=== PATIENT | male | born 1945 | race Caucasian/White ===

== ENCOUNTER → 2019-03-21 08:45 | Outpatient (CLI) | payer MEDICARE, OTHER, SELFPAY ==
--- NOTE | 2019-03-21 | DI.US.S_ITS ---
PROCEDURE: US CAROTID DOPPLER BI INDICATIONS: SYNCOPE AND COLLAPSE TECHNIQUE: Color and pulse Doppler interrogation was performed of both carotid systems, with image documentation and velocity measurements. COMPARISON: [facility], , STROKE PROTOCOL, 01/27/2015, 19:00. FINDINGS: Stenosis calculations are based on SRU (Society of Radiologists in Ultrasound) criteria. Right side: Brachial blood pressure: 111/71 mm Hg. Common carotid artery peak systolic velocity: 109 cm/sec. Internal carotid artery peak systolic velocity: 142 cm/sec. Internal carotid artery end diastolic velocity: 57 cm/sec. External carotid artery peak systolic velocity: 133 cm/sec. ICA/CCA peak systolic ratio: 1.31 Elliott scale imaging description: Minimal atherosclerotic change can be seen. Percent internal carotid artery stenosis: 50-69% by velocity criteria Vertebral artery: Flow direction is antegrade. Left side: Brachial blood pressure: 119/71 mm Hg. Common carotid artery peak systolic velocity: 108 cm/sec. Internal carotid artery peak systolic velocity: 120 cm/sec. Internal carotid artery end diastolic velocity: 43 cm/sec. External carotid artery peak systolic velocity: 114 cm/sec. ICA/CCA peak systolic ratio: 1.12 Elliott scale imaging description: Mild atherosclerotic changes are seen. Percent internal carotid artery stenosis: Less than 50% by velocity criteria Vertebral artery: Flow direction is antegrade. IMPRESSION: By velocity criteria, there is a moderate stenosis (between 50 and 69% stenosis) within the right proximal internal carotid artery. The true degree of stenosis is felt most likely to be at the lower end of this range. Dictated by: Patricio Blair M.D. on 03/21/2019 at 9:34 Approved by: Patricio Blair M.D. on 03/21/2019 at 9:36
== END ==
PROVIDERS: Family Provider Family Medicine; PCP Family Medicine; Visit Provider Family Medicine
DX: I65.23 Occlusion and stenosis of bilateral carotid arteries (principal); R55 Syncope and collapse
CPT/HCPCS: 93880

== ENCOUNTER 2019-11-25 11:50 | Emergency (ER) | payer MEDICARE, OTHER, SELFPAY ==
[2019-11-25 12:06] VITALS: BP 171/74; PULSE 54; RESP 15; TEMP 36.5; O2SAT 99; BMI 22.7
[2019-11-25 12:29] LABS: Bacteria Urine None Seen
[2019-11-25 12:44] LABS: Culture Indicated Urine Specimen Cultured; RBC Urine 0-1/HPF (0-5/HPF); WBC Urine 5-10/HPF (0-5/HPF)
[2019-11-25 12:56] LABS: Add Manual Diff / Slide Review NO; Basophils Absolute Auto 100 /uL (0-100); Eosinophils Absolute Auto 300 /uL (0-450); Eosinophils Percent Auto 5.5 % (2-4); Hematocrit 41.3 % (41-53); Hemoglobin 13.6 g/dL (13.5-17.5); Lymphocytes Absolute Auto 1400 /uL (1100-4500); Lymphocytes Percent Auto 24.4 % (25-40); Mean Corpuscular HGB Conc 32.9 % (30-36); Mean Corpuscular Hemoglobin 29.8 PG (26-34); Mean Corpuscular Volume 90.7 fL (80-100); Monocytes Absolute Auto 500 /uL (0-900); Monocytes Percent Auto 9.3 % (3-14); Neutrophils Absolute Auto 3400 /uL (1500-7000); Neutrophils Percent Auto 59.8 % (50-75); Platelet Count 244 X10^3/uL (150-400); Red Blood Cell Count 4.55 X10^6/uL (4.5-5.9); Red Cell Distribution Width 13.7 % (11.6-14.8); White Blood Cell Count 5.6 X10^3/uL (4.5-11.0)
[2019-11-25 12:59] LABS: Alanine Aminotransferase 28 IU/L (<50); Albumin 4.1 g/dL (3.5-5.0); Albumin Globulin Ratio 1.8 (1.0-2.8); Alkaline Phosphatase 75 U/L (38-126); Aspartate Aminotransferase 26 IU/L (17-59); BUN Creatinine Ratio 25.9 (6-22); Bilirubin Total 0.4 mg/dL (0.2-1.3); Blood Urea Nitrogen 22 mg/dL (9-20); Calcium 9.6 mg/dL (8.4-10.2); Carbon Dioxide 27 mmol/L (22-32); Chloride 106 mmol/L (98-107); Estimated Glomerular Filt Rate > 60.0 mL/min (>60); Globulin 2.3 g/dL (1.7-4.1); Glucose 104 mg/dL (80-110); HEMOLYSIS 19 (0-50); Potassium 4.2 mmol/L (3.4-5.1); Sodium 138 mmol/L (137-145); Total Protein 6.4 g/dL (6.3-8.2)
[2019-11-25 13:00] VITALS: BP 145/74
--- NOTE | 2019-11-25 13:07 | ED_ITS ---
HPI - Neuro Symptoms/Deficit General Chief Complaint: Neuro Symptoms/Deficit Stated Complaint: Neurological Issues Time Seen by Provider: 11/25/19 12:00 Source: patient Mode of arrival: Ambulatory Limitations: no limitations History of Present Illness HPI Narrative: Patient is a 74-year-old male who presents with vague symptoms. He is actually attending a medication seminar this weekend and he is in charge of breaking up 2-1/2 hour blocks into 35 minutes block. He says he had difficult time with the math while meditating this morning. He said this is uncommon for him he is typically very good at this type of math. He had no focal deficits no numbness tingling weakness difficulty speaking or facial droop. He is unsure exactly how long this brain fog lasted possibly an hour. He also has a history of migraines he gets an aura but does not always get headache. He denies an aura this time. He still does not feel quite right. He currently denies any headache visual changes facial numbness chest pain heart palpitations abdominal pain nausea or vomiting, or dizziness. On Anticoagulants: No Related Data Home Medications Medication Instructions Recorded Confirmed No Known Home Medications 07/30/19 Allergies Allergy/AdvReac Type Severity Reaction Status Date / Time venom-honey bee Allergy Unknown Verified 08/19/18 12:55 [BEE VENOM (HONEY BEE)] Review of Systems Review of Systems Narrative: GENERAL: Denies chills, fatigue, malaise, fever, sweats, travel HEENT: Denies sinus pain, ear pain, sore throat, difficulty swallowing, neck pain RESPIRATORY: Denies dyspnea, cough, wheezing, hemoptysis, sputum. CARDIOVASCULAR: Denies chest pain, palpitations, orthopnea, edema GASTROINTESTINAL: Denies nausea, vomiting, abdominal pain, diarrhea, constipation, melena. : Denies dysuria, frequency, incontinence, hematuria, urinary retention, flank pain. MUSCULOSKELETAL: Denies weakness, joint pain, or bony pain SKIN: No rash, no erythema, no pruritus NEUROLOGIC: See HPI PSYCHIATRIC: No concerning psychosocial issues. 12 point review of systems is negative except for those stated above and HPI Patient History Medical History TIA (transient ischemic attack) (Acute) Surgical History Status post hip replacement (Acute) Family History Father Hypertension Heart disease Anxiety Dementia Mother Heart disease Dementia Social History Smoking Status: Former smoker Smoking Status: Former smoker alcohol intake frequency: 0-2 drinks per day Substance Use Type: does not use Exam Initial Vital Signs Initial Vital Signs: Vital Signs Temperature 97.7 F 11/25/19 12:06 Pulse Rate 54 L 11/25/19 12:06 Respiratory Rate 15 11/25/19 12:06 Blood Pressure 171/74 H 11/25/19 12:06 Pulse Oximetry 99 11/25/19 12:06 GENERAL: Alert well-appearing gentleman HEENT: Head atraumatic,EOMI, pupils reactive, face symmetric, moist mucous membranes CARDIOVASCULAR: Regular rate and rhythm without murmurs, rubs or gallops. RESPIRATORY: Breath sounds equal bilaterally, no wheezes rales or rhonchi. ABDOMEN: Soft, nontender. Normoactive bowel sounds all 4 quadrants. No guarding or rebound. EXTREMITIES: Normal range of motion, no clubbing or edema. Neurovascularly intact NEUROLOGICAL: Alert and oriented x4.Normal gait and speech. Cranial nerves II through XII grossly intact. Good dzrgsy-jl-yfep, good tpcw-iy-xvae, strength equal bilaterally, no dysarthria or aphasia, sensation in tact to soft touch bilaterally, no visual changes, no facial droop able to count by serial sevens SKIN: Warm, dry, no laceration, no petechiae, no rashes or lesions. Scores NIH Stroke Scale Level of Conciousness: Alert, keenly responsive Ask month/age: Answers both questions correctly. Open/close eyes, close hand: Performs both tasks correctly Best gaze horizontal: Normal Visual carlos: No visual loss Facial palsy: Normal symetrical movement Left arm drift: No drift for full 10 sec Right arm drift: No drift for full 10 sec Left leg drift: No drift for full 10 sec Right leg drift: No drift for full 10 sec Limb ataxia: Absent Sensory on face/arms/legs: Normal, no sensory loss Best language: No aphasia, normal Dysarthria: Normal Extinction or inattention: No abnormality Total NIH Stroke scale score: 0 Course Orders Ordered: ED Orders 11/25/19 12:20 Urine Culture Stat Urine Microscopic Stat 11/25/19 12:41 Complete Blood Count AUTO DIFF Stat Comprehensive Metabolic Panel Stat 11/25/19 13:08 CT head/brain wo con Stat Vital Signs Vital signs: Vital Signs - 8 hr 11/25/19 12:06 11/25/19 13:00 11/25/19 13:45 Temperature 97.7 F Pulse Rate 54 L 52 L Respiratory Rate 15 13 Blood Pressure 171/74 H 145/74 H Pulse Oximetry 99 99 MDM - Neuro Symptoms/Deficit Lab Data Attestation: I reviewed the patient's lab results. Result diagrams: 11/25/19 12:41 11/25/19 12:41 Labs: Lab Results 11/25/19 11/25/19 11/25/19 Range/Units 12:20 12:41 12:41 WBC 5.6 (4.5-11.0) X10^3/uL RBC 4.55 (4.5-5.9) X10^6/uL Hgb 13.6 (13.5-17.5) g/dL Hct 41.3 (41-53) % MCV 90.7 (80-100) fL MCH 29.8 (26-34) PG MCHC 32.9 (30-36) % RDW 13.7 (11.6-14.8) % Plt Count 244 (150-400) X10^3/uL Neut % (Auto) 59.8 (50-75) % Lymph % (Auto) 24.4 L (25-40) % [place] % (Auto) 9.3 (3-14) % Eos % (Auto) 5.5 H (2-4) % Baso % (Auto) 1.0 (0-2) % Neut # (Auto) 3400 (3828-1851) /uL Lymph # (Auto) 1400 (5465-1334) /uL [place] # (Auto) 500 (0-900) /uL Eos # (Auto) 300 (0-450) /uL Baso # (Auto) 100 (0-100) /uL Sodium 138 (137-145) mmol/L Potassium 4.2 (3.4-5.1) mmol/L Chloride 106 (98-107) mmol/L Carbon Dioxide 27 (22-32) mmol/L BUN 22 H (9-20) mg/dL Creatinine 0.85 (0.66-1.25) mg/dL Estimated GFR > 60.0 (>60) mL/min BUN/Creatinine Ratio 25.9 H (6-22) Glucose 104 (80-110) mg/dL Calcium 9.6 (8.4-10.2) mg/dL Total Bilirubin 0.4 (0.2-1.3) mg/dL AST 26 (17-59) IU/L ALT 28 (<50) IU/L Alkaline Phosphatase 75 (38-126) U/L Total Protein 6.4 (6.3-8.2) g/dL Albumin 4.1 (3.5-5.0) g/dL Globulin 2.3 (1.7-4.1) g/dL Albumin/Globulin Ratio 1.8 (1.0-2.8) Urine RBC 0-1/hpf (0-5/HPF) Urine WBC 5-10/hpf H (0-5/HPF) Urine Bacteria None seen (None) Ur Culture Indicated? Specimen cultured Urine Dip Bedside Urine Glucose Negative Bedside Urine Bilirubin - Negative Bedside Urine Ketone - Negative Urine Specific Britton 1.015 Bedside Urine Occult Blood - Negative Bedside Urine pH 6.0 Bedside Urine Protein - Negative Bedside Urine Urobilinogen - Negative Bedside Urine Nitrite - Negative Bedside Urine Leukocytes ++ [address] scan - head: Radiologist's Impression: PROCEDURE: CT HEAD/BRAIN WO CON INDICATIONS: difficulty thinking TECHNIQUE: Noncontrast 4.5 mm thick angled axial sections acquired from the foramen magnum to the vertex, with coronal and sagittal reformats. For radiation dose reduction, the following was used: automated exposure control, adjustment of mA and/or kV according to patient size. COMPARISON: Outside Facility, RG, CT HEAD W/O CONTRAST, 06/12/2018, 17:31. FINDINGS: Image quality: Diagnostic CSF spaces: Basal cisterns are patent. No extra-axial fluid collections. Ventricles are normal in size and shape. Brain: No midline shift. No intracranial masses or hemorrhage. Elliott-white matter interface is normal. Confluent areas of low-attenuation are identified within the periventricular and deep white matter of the supratentorial brain that is more prominent involving the parietal lobes and is similar to the previous exam. Skull and face: Calvarium and visualized facial bones are intact, without suspicious lesions. Sinuses: Visualized sinuses and mastoids are clear. IMPRESSION: Stable head CT. No acute intracranial hemorrhage. Extensive chronic small vessel ischemic changes are present. Dictated by: Hector Greco M.D. on 11/25/2019 at 12:31 Approved by: Hector Greco M.D. on 11/25/2019 at 12:32 MDM Narrative Medical decision making narrative: Patient has weird symptom of not being able to do math but is able to count by serial 7 now. He has no focal deficits. He does have a history of odd migraines at present with or is but no actual headache or pain. He says this is sort of similar. I think that this is an episode of his. At this time I will discharge him with strict return precautions. He has been on the monitor and has been in sinus rhythm. 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 At this time I have low suspicion for stroke or mini- stroke *Continue to take medications as directed *Follow up with your primary care provider in 2-3 days *Return to ER if you should have increased confusion, difficulty speaking numbness tingling or weakness or any new, worsening or concerning symptoms Prescriptions: No Action No Known Home Medications RF: 0 Referrals: Roscoe Alonso MD [Primary Care Provider] -
[2019-11-25 13:45] VITALS: PULSE 52; RESP 13; O2SAT 99
== END 2019-11-25 14:07 | disposition home or self-care (01) ==
PROVIDERS: Emergency Provider Emergency Medicine; Family Provider Family Medicine; PCP Family Medicine
DX: G43.109 Migraine with aura, not intractable, without status migrainosus (principal)
CPT/HCPCS: 36415; 70450; 80053; 81003; 81015; 85025; 87086; 99284

== ENCOUNTER → 2020-02-15 14:04 | Outpatient (CLI) | payer MEDICARE, OTHER, SELFPAY ==
--- NOTE | 2020-02-15 | DI.MRI.S_ITS ---
PROCEDURE: MR HEAD/BRAIN WO/W CON INDICATIONS: Cerebral amyloid angiopathy TECHNIQUE: Noncontrast axial T1 spin echo, axial T2 fast spin echo, sagittal and axial FLAIR, coronal T2 fast spin echo, axial gradient echo, axial diffusion and ADC through the brain. After the administration of contrast, axial and coronal 3D VIBE or T1 spin echo with fat saturation through the brain. COMPARISON: [facility], CT, CT HEAD/BRAIN WO CON, 11/25/2019, 13:05. Outside Facility, RG, MRI HEAD W/O CONTRAST, 06/12/2018, 22:20. Outside Facility, RG, CT HEAD / NECK ANGIO, 06/12/2018, 17:31. Outside Facility, RG, CT HEAD W/O CONTRAST, 06/12/2018, 17:31. [facility], MR, STROKE PROTOCOL, 01/27/2015, 19:00. FINDINGS: Image quality: Excellent. CSF Spaces: Basal cisterns are patent. No extra-axial fluid collections. Ventricles are normal in size and shape. Brain: No midline shift. No acute intracranial bleeds. There is mild, diffuse cerebral volume loss. No abnormal intracranial mass or mass effect. Punctate and confluent areas of increased T2 signal noted in the periventricular and subcortical white matter tracks. No abnormal intracranial enhancement. The brainstem appears normal. Diffusion-weighted images demonstrate no acute ischemic insults. No areas of encephalomalacia. Curvilinear susceptibility artifact involving sulci of the left frontal lobe, left parietal lobe, left occipital lobe, right parietal lobe and right occipital lobe stable compared to prior MRI obtained June 12, 2018. Punctate foci of susceptibility artifact in the left parietal lobe, left occipital lobe, right occipital lobe, left temporal lobe and cerebellar hemispheres noted. Normal intravascular flow voids are present. Skull and face: Calvarial marrow is normal in signal. Orbits appear normal. Sinuses: Sinuses and mastoids appear clear. IMPRESSION: 1. Stable examination compared to June 12, 2018. 2. 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 Finding is compatible with remote subarachnoid hemorrhage which could be related to trauma or reported amyloid angiopathy. 3. Punctate foci of susceptibility artifact involving the parietal lobes bilaterally, occipital lobes bilaterally, left temporal lobe and cerebellar hemispheres compatible with chronic micro bleeds stable compared to prior MRI. Finding could be related to prior traumatic axial injury, hypertensive microbleeds or amyloid angiopathy microbleeds. 4. No acute intracranial hemorrhage. 5. Punctate and confluent areas of hyperintense T2 signal involving the periventricular and subcortical white matter tracks stable compared to prior examination. 6. No abnormal intra intracranial mass or mass effect. 7. No suspicious postcontrast enhancement. Dictated by: Joselin Goldstein MD, PhD on 02/15/2020 at 16:16 Approved by: Joselin Goldstein MD, PhD on 02/15/2020 at 16:29
== END ==
PROVIDERS: Family Provider Family Medicine; PCP Family Medicine; Referring Provider Family Medicine; Visit Provider Psychiatry & Neurology Vascular Neurology
DX: E85.4 Organ-limited amyloidosis (principal); I68.0 Cerebral amyloid angiopathy
CPT/HCPCS: 70553

== ENCOUNTER → 2020-03-20 08:21 | Outpatient (CLI) | payer MEDICARE, OTHER, SELFPAY ==
[2020-03-20 17:45] LABS: COVID19 -Nasal RAPID Negative (Negative)
== END ==
PROVIDERS: Family Provider Family Medicine; PCP Family Medicine; Referring Provider Family Medicine Sleep Medicine; Visit Provider Family Medicine Sleep Medicine
DX: Z11.59 Encounter for screening for other viral diseases (principal)
CPT/HCPCS: 87635; C9803

== ENCOUNTER → 2020-07-09 16:35 | Outpatient (CLI) | payer MEDICARE, OTHER, SELFPAY ==
[2020-07-09] MEDS: COVID-19 VACC #1, MRNA(MOD) 100 MCG/0.5 ML VIAL IM (16:52)
== END ==
PROVIDERS: Family Provider Family Medicine; PCP Family Medicine; Visit Provider Internal Medicine
DX: Z23 Encounter for immunization (principal)
CPT/HCPCS: 0011A; 91301

== ENCOUNTER → 2020-08-08 07:36 | Outpatient (CLI) | payer MEDICARE, OTHER, SELFPAY ==
[2020-08-08] MEDS: COVID-19 VACC #2, MRNA(MOD) 100 MCG/0.5 ML VIAL IM (07:44)
== END ==
PROVIDERS: Family Provider Family Medicine; PCP Family Medicine; Visit Provider Internal Medicine
DX: Z23 Encounter for immunization (principal)
CPT/HCPCS: 0012A; 91301

== ENCOUNTER → 2020-11-07 10:03 | Outpatient (CLI) | payer MEDICARE, OTHER, SELFPAY ==
[2020-11-07 10:38] LABS: COVID19 -Nasal RAPID Negative (Negative)
== END ==
PROVIDERS: Family Provider Family Medicine; PCP Family Medicine; Visit Provider Physician Assistant
DX: Z20.822 Contact with and (suspected) exposure to COVID-19 (principal)
CPT/HCPCS: 87635

== ENCOUNTER → 2020-11-07 10:14 | Outpatient (CLI) | payer MEDICARE, OTHER, SELFPAY ==
--- NOTE | 2020-11-07 10:15 | DI.RAD.S_ITS ---
PROCEDURE: XR CHEST 2V INDICATIONS: cough TECHNIQUE: 2 views of the chest were acquired. COMPARISON: None. FINDINGS: Surgical changes and devices: None. Lungs and pleura: Lungs are clear. No consolidation. No pleural effusions or pneumothorax. Mediastinum: Mediastinal contours are normal. Heart size is normal. Bones and chest wall: No suspicious bony abnormalities. Soft tissues appear unremarkable. IMPRESSION: No consolidation to suggest pneumonia. Dictated by: Kristian Hollis M.D. on 11/07/2020 at 10:28 Approved by: Kristian Hollis M.D. on 11/07/2020 at 10:29
== END ==
PROVIDERS: Family Provider Family Medicine; PCP Family Medicine; Referring Provider Physician Assistant; Visit Provider Physician Assistant
DX: R05 Cough (principal); Z20.822 Contact with and (suspected) exposure to COVID-19
CPT/HCPCS: 71046; 87635

== ENCOUNTER → 2021-03-25 08:09 | Outpatient (CLI) | payer MEDICARE, OTHER, SELFPAY ==
--- NOTE | 2021-03-25 | DI.MRI.S_ITS ---
PROCEDURE: MR STROKE Pre- and post-contrast brain MRI, non-contrast brain MR angiogram, pre- and postcontrast neck MR angiogram INDICATIONS: Other localized visual field defect, right eye TECHNIQUE: Brain: Noncontrast axial T1 spin echo, axial T2 fast spin echo, sagittal and axial FLAIR, coronal T2 fast spin echo, axial gradient echo, axial diffusion and ADC through the brain. After the administration of contrast, axial 3D VIBE of the cranial vasculature and brain. Brain MRA: Non-contrast 3-D time of flight MR angiogram, with multiple wqdivnl-jjzwypxzv-xhmczjqtrf (MIP) reformats performed. Neck MRA: Axial and sagittal TruFISP through the neck. Coronal dynamic MR angiogram during administration of contrast in the arterial and venous phases, with 3-dimenstional vkfswil-ewmskioed-renemmkvoi (MIP) reformats constructed from subtraction images. COMPARISON: Outside Facility, RG, CT HEAD / NECK ANGIO, 06/12/2018, 17:31. Outside Facility, RG, MRI HEAD W/O CONTRAST, 06/12/2018, 22:20. [facility], US CAROTID DOPPLER BI, 03/21/2019, 9:04. [facility], CT, CT HEAD/BRAIN WO CON, 11/25/2019, 13:05. [facility], MR, MR HEAD/BRAIN WO/W CON, 02/15/2020, 14:19. [facility], , STROKE PROTOCOL, 01/27/2015, 19:00. FINDINGS: Image quality: Excellent. BRAIN: CSF spaces: Ventricles are normal in size and shape. Basal cisterns are patent. No extra-axial fluid collections. Brain: There is a new focus of T1 weighted hyperintensity within the medial left occipital lobe inferiorly, as on series 15, image 10. Increased T2 weighted/FLAIR signal is also seen at this site. This measures 1.3 cm AP. There is susceptibility artifact seen at this site, as on series 19, image 10. There is abnormal diffusion-weighted signal seen at this site, with associated dark signal on ADC map, as on series 20, image 16 on series 21, image 10. On postcontrast imaging, this appears to enhance, although this is likely artifactual, given the right precontrast T1 weighted signal at this site. No similar focus can be seen on the 02/15/2020 MRI examination. There is again seen unchanged susceptibility artifact along the surface of both posterior cerebral hemispheres, left worse than right. There is susceptibility artifact also seen involving the left basal ganglia, as on series 19, image 13. Additional small areas of prior hemorrhage can be seen elsewhere, which appear stable. Note is made of age-appropriate brain parenchymal volume loss and chronic small vessel ischemic changes. No mass effects. Elliott-white matter interface is normal. Diffusion weighted images show no acute ischemic insults. Brainstem appears normal. Normal intravascular flow voids are present. No abnormal intracranial enhancement. Skull and face: Calvarial marrow signal is normal. Orbits appear normal. Apparent left lens replacement. Sinuses: Yiqh-ge-ytiwoszv mucosal thickening is seen within the inferior maxillary sinuses. Mild mucosal thickening is seen elsewhere within the paranasal sinuses. No definite abnormal mastoid air cell fluid can be seen. BRAIN MR ANGIOGRAM: Anterior circulation: Intracranial internal carotid arteries are normal in size and enhancement. There is a diminutive right A1 segment, with a corresponding robust left A1 segment. This is considered to be a normal developmental variant of the [place], of typically no clinical consequence. The flow within the paired anterior cerebral arteries is otherwise normal and symmetric. The flow within the middle cerebral arteries is normal and symmetric. The anterior communicating artery is seen. No stenoses, occlusions, or aneurysms. Posterior circulation: The visualized portions of the vertebral arteries demonstrate normal caliber, and join to form a normal appearing basilar artery. The flow within the posterior cerebral arteries is normal and symmetric. No stenoses, occlusions, or aneurysms. NECK MR ANGIOGRAM: Carotids: Great vessels demonstrate a conventional anatomy as they arise from the aortic arch. The origins of the common carotid arteries appear patent. Generalized mild narrowing of the left proximal common carotid artery is seen, proximally 30%. The calibers and courses of both common carotid arteries are otherwise normal. The bifurcation regions appear normal bilaterally. The internal carotid arteries demonstrate normal course and caliber. Posterior circulation: The origins of the vertebral arteries appear patent. More superior portions of both vertebral arteries demonstrate normal course and caliber, and join to form a normal appearing basilar artery. Miscellaneous: Subclavian arteries appear patent. Pre-contrast images through the neck show no soft tissue abnormalities. IMPRESSION: BRAIN MRI: 1.3 cm abnormal focus seen within the inferomedial left occipital lobe. Given the imaging findings, this is attributed to a hemorrhagic infarction. Stable superficial siderosis again seen posteriorly. Stable prior hemorrhage of the left basal ganglia. Additional small areas of hemorrhage are again seen elsewhere. BRAIN MR ANGIOGRAM: No significant intracranial arterial abnormality is seen. NECK MR ANGIOGRAM: Generalized narrowing seen of the left proximal common carotid artery, approximately 30%. No significant internal carotid artery narrowing can be seen. No significant vertebral artery narrowing is seen. Note: Dr. Alonso was not available to discuss this case at the time of this dictation. Critical finding of potentially acute hemorrhage relayed to Dr. Alonso via office staff, [place], at 8:43 a.m. [place] time on March 25, 2021. Dr. Alonso will call back if there are any questions. Dictated by: Patricio Blair M.D. on 03/25/2021 at 8:33 Approved by: Patricio Blair M.D. on 03/25/2021 at 8:47
== END ==
PROVIDERS: Family Provider Family Medicine; PCP Family Medicine; Referring Provider Family Medicine; Visit Provider Family Medicine
DX: H53.451 Other localized visual field defect, right eye (principal)
CPT/HCPCS: 70548; 70553; A9579

== ENCOUNTER → 2021-06-05 08:37 | Outpatient (CLI) | payer MEDICARE, OTHER, SELFPAY ==
[2021-06-05 09:19] LABS: COVID19 -Nasal RAPID Negative (Negative)
== END ==
PROVIDERS: Family Provider Family Medicine; PCP Family Medicine; Visit Provider Physician Assistant
DX: Z20.822 Contact with and (suspected) exposure to COVID-19 (principal)
CPT/HCPCS: 87635

== ENCOUNTER → 2021-06-10 11:03 | Outpatient (CLI) | payer MEDICARE, OTHER, SELFPAY ==
--- NOTE | 2021-06-10 | DI.RAD.S_ITS ---
PROCEDURE: XR CHEST 2V INDICATIONS: COUGH TECHNIQUE: 2 views of the chest were acquired. COMPARISON: [facility], CR, XR CHEST 2V, 11/07/2020, 10:16. FINDINGS: Surgical changes and devices: None. Lungs and pleura: Lungs appear clear. No pleural effusions or pneumothorax. Mediastinum: Mediastinal contours are unchanged. Heart size is normal. Bones and chest wall: No suspicious bony abnormalities. Soft tissues appear unremarkable. IMPRESSION: No acute cardiopulmonary abnormality. Dictated by: Kristian Hollis M.D. on 06/10/2021 at 11:54 Approved by: Kristian Hollis M.D. on 06/10/2021 at 11:54
== END ==
PROVIDERS: Family Provider Family Medicine; PCP Family Medicine; Referring Provider Family Medicine; Visit Provider Family Medicine
DX: R05.9 Cough, unspecified (principal)
CPT/HCPCS: 71046

== ENCOUNTER → 2021-06-16 14:33 | Outpatient (CLI) | payer MEDICARE, OTHER, SELFPAY ==
--- NOTE | 2021-06-16 | DI.US.S_ITS ---
PROCEDURE: US ABD AORTA ANEURYSM SCREEN INDICATIONS: Encounter for screening for cardiovascular disorders TECHNIQUE: Real time scanning was performed of the aorta and iliac arteries, with image documentation. COMPARISON: None. FINDINGS: Aorta: Proximal aortic diameter measures 2.4 cm. Mid-aorta measures 2.0 cm. Distal aortic diameter is 0.9 cm. Iliac arteries: Right common iliac artery measures 1.4 cm. Left common iliac artery measures 1.2 cm. IMPRESSION: Unremarkable tunnel aortic aneurysm. Dictated by: Luis Alberto Shirley M.D. on 06/16/2021 at 15:49 Approved by: Luis Alberto Shirley M.D. on 06/16/2021 at 15:52
== END ==
PROVIDERS: Family Provider Family Medicine; PCP Family Medicine; Referring Provider Family Medicine; Visit Provider Family Medicine
DX: Z13.6 Encounter for screening for cardiovascular disorders (principal)
CPT/HCPCS: 76706

== ENCOUNTER → 2021-07-14 10:12 | Outpatient (CLI) | payer MEDICARE, OTHER, SELFPAY ==
--- NOTE | 2021-07-14 | DI.CT.S_ITS ---
PROCEDURE: CT CHEST W CON INDICATIONS: Chronic cough TECHNIQUE: After the administration of intravenous contrast, 5 mm thick sections acquired from the pulmonary apices to the posterior costophrenic angles. 1 mm axial lung, 5 mm thick coronal and sagittal reformats and 7 mm axial MIP were acquired. For radiation dose reduction, the following was used: automated exposure control, adjustment of mA and/or kV according to patient size. COMPARISON: None. FINDINGS: Image quality: Excellent. Lungs and pleura: Subtle ground-glass radiopacities are present at the bilateral apices. No acute airspace opacities. No pulmonary nodules. Trace bronchiectasis and scarring is present at the medial posterior right lung base. No pleural effusion or pneumothorax. Mediastinum: Heart size is normal. No pericardial effusion. No mediastinal or hilar adenopathy by size criteria. Thoracic aorta and central pulmonary arteries are normal in size. Scattered atheromatous calcifications are present within the aortic arch. Esophagus is normal in caliber. No hiatal hernia. Bones and chest wall: No suspicious bony lesions. No vertebral body compression fractures. No axillary or supraclavicular adenopathy by size criteria. Thyroid gland is unremarkable . Abdomen: There is likely a small posterior gastric diverticulum near the gastric cardia which is fluid filled. Visualized upper abdominal solid organs appear otherwise normal. Upper abdominal bowel loops are normal in caliber. IMPRESSION: 1. Subtle ground-glass opacities at the apices which may be associated with early mild air trapping. 2. Trace focal bronchiectasis at the posterior right medial lung base which may be the sequela of prior infection. 3. No other findings to explain chronic cough. No airspace opacities. Dictated by: Reema Mercado M.D. on 07/14/2021 at 15:55 Approved by: Reema Mercado M.D. on 07/14/2021 at 15:59
== END ==
PROVIDERS: Family Provider Family Medicine; PCP Family Medicine; Referring Provider Family Medicine; Visit Provider Family Medicine
DX: R05.3 Chronic cough (principal)
CPT/HCPCS: 71260

== ENCOUNTER → 2021-07-16 07:00 | Outpatient (CLI) | payer MEDICARE, OTHER, SELFPAY ==
[2021-07-16 08:43] LABS: COVID-19 CEPHEID PCR (VTM/NP) Negative (Negative)
== END ==
PROVIDERS: Family Provider Family Medicine; PCP Family Medicine; Referring Provider Internal Medicine; Visit Provider Internal Medicine
DX: Z20.822 Contact with and (suspected) exposure to COVID-19 (principal)
CPT/HCPCS: C9803; U0003; U0005

== ENCOUNTER → 2021-07-16 08:57 | Outpatient (CLI) | payer MEDICARE, OTHER, SELFPAY ==
--- NOTE | 2021-07-22 09:27 | PM.PFT.1 ---
Pulmonary Function Test Referral & Results Date Patient Seen: 07/16/21 Requesting provider: Roscoe Alonso Results: The spirometry demonstrates an FVC of 4.40 L which is 107% of predicted. The FEV1 was measured at 2.65 L which is 89% of predicted. The FEV1/FVC ratio was 60 which is 82% of predicted. Following the administration of bronchodilator there was a 23% improvement in FEV1 and a 128% improvement in FEF 25-75% Lung volumes show an SVC of 4.81 L which is 110% of predicted. The diffusing capacity was measured at 31.45which is 101% of predicted. The maximum voluntary ventilation was normal Interpretation: This study demonstrates the possibility of very mild obstructive lung disease based primarily on significant improvement in FEV1 and FEF 25-75% after bronchodilator administration. Lung volumes are normal as is diffusing capacity. Clinical correlation suggested
== END ==
PROVIDERS: Family Provider Family Medicine; PCP Family Medicine; Referring Provider Family Medicine; Visit Provider Family Medicine
DX: R05.3 Chronic cough (principal); Z87.891 Personal history of nicotine dependence; Z20.822 Contact with and (suspected) exposure to COVID-19; J98.8 Other specified respiratory disorders
CPT/HCPCS: 94060; 94726; 94729; C9803; U0003; U0005

== ENCOUNTER 2021-08-16 20:59 | Emergency (ER) | payer MEDICARE, OTHER, SELFPAY ==
[2021-08-16 21:02] VITALS: BP 159/79; PULSE 72; RESP 26; TEMP 37; O2SAT 100; BMI 23.6
--- NOTE | 2021-08-16 21:36 | DI.RAD.S_ITS ---
PROCEDURE: XR CHEST 1V INDICATIONS: aspiration TECHNIQUE: One view of the chest was acquired. COMPARISON: [facility], CR, XR CHEST 2V, 06/10/2021, 10:58. FINDINGS: Surgical changes and devices: None. Lungs and pleura: Lungs are clear. No pleural effusions or pneumothorax. Mediastinum: Mediastinal contours appear normal. Heart size is normal. Bones and chest wall: No suspicious bony lesions. Overlying soft tissues appear unremarkable. IMPRESSION: 1. No acute cardiopulmonary disease. Dictated by: Alan Booth M.D. on 08/16/2021 at 21:47 Approved by: Alan Booth M.D. on 08/16/2021 at 21:53
[2021-08-16 23:15] VITALS: BP 133/71; PULSE 72; RESP 18; O2SAT 94
--- NOTE | 2021-08-16 23:19 | ED_ITS ---
HPI - SOB/Dyspnea General Chief Complaint: Shortness of Breath/Dyspnea Stated Complaint: Aspirated lettuce Time Seen by Provider: 08/16/21 23:12 Source: patient and EMS Mode of arrival: EMS Limitations: no limitations History of Present Illness HPI Narrative: Patient is a 76-year-old male with history of hypothyroid a new onset asthma or reactive airway disease presenting today with aspiration event. He says he ate some lettuce he says it went down the wrong pipe started coughing and felt like he could not breathe. EMS gave him albuterol which has seemed to help. He overall is feeling much better he has no chest pain or tightness. He says he always has some intermittent wheezing which she continues to feel here. No fever chills or other symptoms. He is scheduled to see a guest experience representative in 2 days. Related Data Home Medications Medication Instructions Recorded Confirmed levothyroxine 25 mcg capsule 25 mcg PO DAILY 01/07/21 06/05/21 ResMEd AirSense 10 Auto 07/01/21 07/01/21 Previous Rx's Medication Instructions Recorded albuterol sulfate 90 mcg/actuation 2 puff INHALATION Q6H PRN #8.5 g 06/05/21 aerosol inhaler Allergies Allergy/AdvReac Type Severity Reaction Status Date / Time venom-honey bee Allergy Unknown Verified 06/05/21 08:36 [BEE VENOM (HONEY BEE)] Review of Systems Review of Systems Narrative: GENERAL: Denies chills, fatigue, malaise, fever, sweats, travel HEENT: Denies sinus pain, ear pain, sore throat, difficulty swallowing, neck pain RESPIRATORY: See HPI CARDIOVASCULAR: Denies chest pain, palpitations, orthopnea, edema GASTROINTESTINAL: Denies nausea, vomiting, abdominal pain, diarrhea, constipation, melena. : Denies dysuria, frequency, incontinence, hematuria, urinary retention, flank pain. MUSCULOSKELETAL: Denies weakness, joint pain, or bony pain SKIN: No rash, no erythema, no pruritus NEUROLOGIC: Denies weakness, dizziness, headache, numbness, change in speech, confusion PSYCHIATRIC: No concerning psychosocial issues. 12 point review of systems is negative except for those stated above and HPI Patient History Medical History Insomnia Obstructive sleep apnea Rhinorrhea TIA (transient ischemic attack) Surgical History Status post hip replacement Family History Father Hypertension Heart disease Anxiety Dementia Mother Heart disease Dementia Social History Smoking Status: Former smoker Smokeless tobacco user: chewing tobacco alcohol intake: current substance use type: does not use Smoking Status: Former smoker alcohol intake frequency: 0-2 drinks per day Substance Use Type: does not use Exam Initial Vital Signs Initial Vital Signs: Vital Signs Temperature 98.6 F 08/16/21 21:02 Pulse Rate 72 08/16/21 21:02 Respiratory Rate 26 H 08/16/21 21:02 Blood Pressure 159/79 H 08/16/21 21:02 Pulse Oximetry 100 08/16/21 21:02 GENERAL: Alert well-appearing 76-year-old male and in no acute distress. HEENT: Head atraumatic,EOMI, pupils reactive, face symmetric, moist mucous membranes CARDIOVASCULAR: Regular rate and rhythm without murmurs, rubs or gallops. RESPIRATORY: Breath sounds equal bilaterally, no wheezes rales or rhonchi. Speaks in full sentences without difficulty ABDOMEN: Soft, nontender. Normoactive bowel sounds all 4 quadrants. No guarding or rebound. EXTREMITIES: Normal range of motion, no clubbing or edema. Neurovascularly intact NEUROLOGICAL: Alert and oriented x4.Normal gait and speech. SKIN: Warm, dry, no laceration, no petechiae, no rashes or lesions. Course Orders Ordered: ED Orders 08/16/21 21:36 Chest [XR chest 1V] Stat Vital Signs Vital signs: Vital Signs - 8 hr 08/16/21 21:02 08/16/21 23:15 Temperature 98.6 F Pulse Rate 72 72 Respiratory Rate 26 H 18 Blood Pressure 159/79 H 133/71 Pulse Oximetry 100 94 MDM - SOB/Dyspnea Imaging Data Chest x-ray: Radiologist's Impression: PROCEDURE:? XR CHEST 1V ? INDICATIONS:? aspiration ? TECHNIQUE:? One view of the chest was acquired.? ? COMPARISON:? [facility], , XR CHEST 2V, 06/10/2021, 10:58. ? FINDINGS:? ? Surgical changes and devices:? None.? ? Lungs and pleura:? Lungs are clear.? No pleural effusions or pneumothorax.? ? Mediastinum:? Mediastinal contours appear normal.? Heart size is normal.? ? Bones and chest wall:? No suspicious bony lesions.? Overlying soft tissues appear unremarkable.? ? IMPRESSION:? ? 1.? No acute cardiopulmonary disease. ? ? ? Dictated by: Alan Booth M.D. on 08/16/2021 at 21:47 ? ? Approved by: Alan Booth M.D. on 08/16/2021 at 21:53 ? MDM Narrative Medical decision making narrative: This time patient appears comfortable his no sign of respiratory distress. X- ray is negative. Discussed with him to watch and monitor for any sign of infection at this time no need for antibiotics. Discharge Plan Departure Patient Disposition: Home Clinical Impression: Aspiration into airway Instructions: Aspiration Pneumonia Activity Restrictions/Additional Instructions: *You have been diagnosed with aspiration *What to do: At this time there is no sign of pneumonia. Please continue to monitor for fever cough and worsening symptoms. *Continue to take medications as directed *Follow up with your primary care provider in 2-3 days or call [phone] Follow-up with pulmonology as scheduled next *Return to ER if you should have increased fever productive cough shortness of breath weakness or any new, worsening or concerning symptoms Prescriptions: No Action albuterol sulfate 90 mcg/actuation HFA aerosol inhaler 2 puff inhalation Q6H PRN (Reason: shortness of breath or wheezing) Qty: 8.5 0RF (DME) ResMEd AirSense 10 Auto See Rx Instructions .ROUTE .MEDSUPPLY 0RF Rx Instructions: CPAP Min: 8 Max: 13 DME: [employer] levothyroxine 25 mcg capsule 25 mcg PO DAILY 0RF Referrals: Roscoe Alonso MD [Primary Care Provider] -
== END 2021-08-16 23:35 | disposition home or self-care (01) ==
PROVIDERS: Emergency Provider Emergency Medicine; Family Provider Family Medicine; PCP Family Medicine
DX: T17.928A Food in respiratory tract, part unspecified causing other injury, initial encounter (principal); F17.220 Nicotine dependence, chewing tobacco, uncomplicated; X58.XXXA Exposure to other specified factors, initial encounter; Y93.89 Activity, other specified
CPT/HCPCS: 71045; 99281; 99283

== ENCOUNTER → 2021-10-19 14:11 | Outpatient (CLI) | payer MEDICARE, OTHER, SELFPAY ==
--- NOTE | 2021-10-19 | DI.RAD.S_ITS ---
PROCEDURE: XR LUMBAR SPINE 2-3V INDICATIONS: LOW BACK PAIN TECHNIQUE: 3 views of the lumbar spine were acquired. COMPARISON: None. FINDINGS: Bones: 5 aon-seg-aipnszx vertebrae are present. Convex right lumbar spine scoliosis. There is mild, approximately 4 millimeters L5-S1 anterolisthesis. No vertebral body compression fractures. No suspicious bony lesions. Mild degenerative disc changes noted throughout the lumbar spine. Moderate L3-L4, L4-L5 and L5-S1 facet arthropathy. Mild L1-L2 and L2-L3 facet arthropathy. Partially visualized left hip arthroplasty. Soft tissues: Overlying bowel gas pattern is normal. No suspicious soft tissue calcifications. IMPRESSION: 1. Multilevel degenerative disc disease. 2. Multilevel facet arthropathy. 3. No fracture. No acute osseous lesion. If symptoms and/or clinical suspicion for pathology persists, evaluation with MRI should be considered for further assessment. 4. Grade 1 L5-S1 spondylolisthesis. 5. Convex right scoliosis. Dictated by: Joselin Goldstein MD, PhD on 10/19/2021 at 14:38 Approved by: Joselin Goldstein MD, PhD on 10/19/2021 at 14:40
== END ==
PROVIDERS: Family Provider Family Medicine; PCP Family Medicine; Referring Provider Chiropractor; Visit Provider Chiropractor
DX: M51.36 Other intervertebral disc degeneration, lumbar region (principal); M47.816 Spondylosis without myelopathy or radiculopathy, lumbar region; M47.817 Spondylosis without myelopathy or radiculopathy, lumbosacral region; M43.17 Spondylolisthesis, lumbosacral region; M41.86 Other forms of scoliosis, lumbar region; M54.50 Low back pain, unspecified
CPT/HCPCS: 72110

== ENCOUNTER → 2022-03-07 11:02 | Outpatient (CLI) | payer MEDICARE, SELFPAY ==
[2022-03-07 11:34] LABS: COVID19 -Nasal RAPID Negative (Negative)
== END ==
PROVIDERS: Family Provider Family Medicine; PCP Family Medicine; Visit Provider Nurse Practitioner Family
DX: Z20.822 Contact with and (suspected) exposure to COVID-19 (principal); J20.9 Acute bronchitis, unspecified
CPT/HCPCS: 87070; 87635

== ENCOUNTER → 2022-04-12 10:37 | Outpatient (CLI) | payer MEDICARE, OTHER, SELFPAY ==
[2022-04-12 13:19] LABS: TSH w/ Reflex to FT4 2.96 uIU/mL (0.47-4.68)
== END ==
PROVIDERS: Family Provider Family Medicine; PCP Family Medicine; Referring Provider Family Medicine; Visit Provider Family Medicine
DX: E03.9 Hypothyroidism, unspecified (principal)
CPT/HCPCS: 36415; 84443

== ENCOUNTER → 2022-05-26 14:51 | Outpatient (CLI) | payer MEDICARE, OTHER, SELFPAY ==
--- NOTE | 2022-05-26 | DI.RAD.S_ITS ---
PROCEDURE: XR HIP W PEL IF DONE RT 2V INDICATIONS: RIGHT HIP PAIN TECHNIQUE: AP pelvis with lateral view(s) of the right hip(s). COMPARISON: None. FINDINGS: Bones: No fractures or dislocations. Pelvic ring appears intact. Left hip arthroplasty is intact. There is moderate to severe right hip joint space narrowing and small collar osteophytes. Soft tissues: The visualized bowel gas pattern is normal. No suspicious soft tissue calcifications. 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 No acute radiographic findings. Dictated by: Reema Mercado M.D. on 05/26/2022 at 17:21 Approved by: Reema Mercado M.D. on 05/26/2022 at 17:21
== END ==
PROVIDERS: Family Provider Family Medicine; PCP Family Medicine; Referring Provider Family Medicine; Visit Provider Family Medicine
DX: M25.551 Pain in right hip (principal); M16.11 Unilateral primary osteoarthritis, right hip
CPT/HCPCS: 73502

== ENCOUNTER → 2022-07-20 16:06 | Outpatient (CLI) | payer MEDICARE, OTHER, SELFPAY ==
--- NOTE | 2022-07-20 16:07 | DI.RAD.S_ITS ---
PROCEDURE: XR CHEST 2V INDICATIONS: inhaled foreign object TECHNIQUE: 2 views of the chest were acquired. COMPARISON: [facility], CR, XR CHEST 1V, 08/16/2021, 21:41. [facility], CR, XR CHEST 2V, 06/10/2021, 10:58. FINDINGS: Surgical changes and devices: None. Lungs and pleura: Lungs are clear. No pleural effusions or pneumothorax. Mediastinum: Mediastinal contours are normal. Heart size is normal. Bones and chest wall: No suspicious bony abnormalities. Soft tissues appear unremarkable. No radiopaque foreign body. IMPRESSION: No radiopaque foreign body. Dictated by: Terell Sánchez M.D. on 07/20/2022 at 17:01 Approved by: Terell Sánchez M.D. on 07/20/2022 at 17:01
== END ==
PROVIDERS: Family Provider Family Medicine; PCP Family Medicine; Referring Provider Urology; Visit Provider Urology
DX: T17.908A Unspecified foreign body in respiratory tract, part unspecified causing other injury, initial encounter (principal)
CPT/HCPCS: 71046

== ENCOUNTER → 2023-02-22 13:18 | Outpatient (CLI) | payer MEDICARE, OTHER, SELFPAY ==
[2023-02-22 14:47] LABS: Influenza A - CEPHEID Flu A NEGATIVE (NEGATIVE); Influenza B - CEPHEID Flu B NEGATIVE (NEGATIVE); Respiratory Syncytial Virus Negative (Negative)
[2023-02-22 16:18] LABS: COVID-19 CEPHEID 4-PLEX PCR Negative (Negative)
== END ==
PROVIDERS: Family Provider Family Medicine; PCP Family Medicine; Visit Provider Physician Assistant
DX: J02.9 Acute pharyngitis, unspecified (principal); R53.83 Other fatigue; Z20.828 Contact with and (suspected) exposure to other viral communicable diseases
CPT/HCPCS: 0241U

== ENCOUNTER → 2023-02-26 15:54 | Outpatient (CLI) | payer MEDICARE, OTHER, SELFPAY | PROVIDERS: Family Provider Family Medicine; PCP Family Medicine; Visit Provider Registered Nurse | DX: J02.9 Acute pharyngitis, unspecified (principal) | CPT/HCPCS: 87070 ==

== ENCOUNTER → 2024-02-09 16:42 | Outpatient (CLI) | payer MEDICARE, OTHER, SELFPAY ==
--- NOTE | 2024-02-09 16:44 | DI.MRI.S_ITS ---
PROCEDURE: MR KNEE LT WO CON INDICATIONS: Pain in left knee TECHNIQUE: Noncontrast sagittal PD fast spin echo and T2 fast spin echo with fat saturation, sagittal 3-D FLASH with fat saturation; coronal T1 spin echo and PD fast spin echo with fat saturation, and axial PD fast spin echo with fat saturation through the knee. COMPARISON: [facility], CR, XR KNEE ARTHRITIC SERIES LT, 01/24/2024, 10:18. FINDINGS: Image quality: Excellent. Menisci: In the medial meniscus, there is a horizontal tear of the posterior horn, extending to a flap tear of the femoral surface of the medial meniscus body. There is a meniscus fragment extending from the meniscus body to the superior gutter, measuring 7 mm. There is mild extrusion of the medial meniscus body. The lateral meniscus is unremarkable. Cruciate ligaments: Mucoid degeneration of the ACL. The PCL is intact. Medial structures: The medial collateral ligament appears intact. The posterior oblique ligament, semimembranosus tendon insertions, oblique popliteal ligament, and meniscocapsular junction appear intact. Visualized portions of the pes anserinus tendons appear normal. No abnormal bursal fluid. Lateral structures: The lateral collateral ligament, long and short heads of the biceps femoris tendon appear intact. The popliteus tendon appears normal; the popliteofibular ligament appears intact. The posterosuperior and anteroinferior popliteomeniscal fascicles appear intact. The arcuate and fabellofibular ligaments appear intact, on either side of the lateral inferior geniculate artery. Iliotibial band appears normal. Anterior structures: The quadriceps and patellar tendons appear intact. Lateral tilt of the patella. No femoral trochlear dysplasia or ventral trochlear prominence. No edema in the infrapatellar fat pad. Bones and cartilage: There is multifocal mild chondral irregularity in the patella, with mild subchondral marrow edema in the median ridge. Cartilage of the trochlea is well maintained. In the medial compartment, the cartilage is well maintained. In the lateral compartment, there is mild chondral irregularity in the lateral tibial plateau. Subchondral cystic changes and mild marrow edema at the tibial eminence, reactive. No acute fracture. Joint space: Small knee effusion. No popliteal cyst. Popliteal vasculature is unremarkable. IMPRESSION: 1. Tear of the medial meniscus with a meniscus flap. 2. Mucoid degeneration of the ACL with subjacent subchondral cystic changes and marrow edema at the tibial eminence. 3. Mild, patellofemoral compartment predominant chondrosis. Lateral tilt of the patella. Dictated by: Barbara Rivas M.D. on 02/10/2024 at 10:21 Approved by: Barbara Rivas M.D. on 02/10/2024 at 10:30
== END ==
PROVIDERS: Family Provider Family Medicine; PCP Family Medicine; Referring Provider Student in an Organized Health Care Education/Training Program; Visit Provider Student in an Organized Health Care Education/Training Program
DX: S83.242A Other tear of medial meniscus, current injury, left knee, initial encounter (principal); M25.562 Pain in left knee; M22.42 Chondromalacia patellae, left knee
CPT/HCPCS: 73721

== ENCOUNTER 2024-07-19 17:01 | Emergency (ER) | payer MEDICARE, OTHER, SELFPAY ==
[2024-07-19] VITALS (11 sets, daily range): BP systolic 142–169; BP diastolic 71–78; PULSE 59–72; RESP 12–21; TEMP 36.6–36.8; O2SAT 95–100; BMI 25.8
--- NOTE | 2024-07-19 17:18 | EKG_ITS ---
[address] [address] Test Date: 2024-07-19 Pat Name: Rodney Saucedo Department: [facility] Room: Gender: Male Shoe Treer: DARCIE : 1945 Requested By: Order Number: [id number] Reading MD: Louis Aviles Measurements Intervals [place] Rate: 57 P: 64 IA: 242 QRS: 18 QRSD: 98 T: 57 QT: 396 QTc: 385 Interpretive Statements Sinus bradycardia with 1st degree AV block Electronically Signed On 07-19-2024 17:42:49 PST by Louis Aviles
--- NOTE | 2024-07-19 17:18 | DI.RAD.S_ITS ---
PROCEDURE: XR CHEST 1V INDICATIONS: Possible stroke TECHNIQUE: One view of the chest was acquired. COMPARISON: [facility], CR, XR CHEST 2V, 07/20/2022, 16:14. FINDINGS: Surgical changes and devices: None. Lungs and pleura: Lungs are clear. No pleural effusions or pneumothorax. Mediastinum: Mediastinal contours appear normal. Heart size is normal. Bones and chest wall: No suspicious bony lesions. Overlying soft tissues appear unremarkable. IMPRESSION: Stable radiographic evaluation of the chest without acute cardiopulmonary abnormalities or focal consolidation. Dictated by: Mikey Luciano M.D. on 07/19/2024 at 17:55 Approved by: Mikey Luciano M.D. on 07/19/2024 at 17:55
--- NOTE | 2024-07-19 17:18 | DI.CT.S_ITS ---
PROCEDURE: CT HEAD/BRAIN WO CON INDICATIONS: stroke symptoms TECHNIQUE: Noncontrast 4.5 mm thick angled axial sections acquired from the foramen magnum to the vertex, with coronal and sagittal reformats. For radiation dose reduction, the following was used: automated exposure control, adjustment of mA and/or kV according to patient size. COMPARISON: [facility], CT, CT HEAD/BRAIN WO CON, 11/25/2019, 13:05. FINDINGS: Image quality: Diagnostic. CSF spaces: Basal cisterns are patent. No extra-axial fluid collections. The ventricles are symmetric in size and shape. Brain: No intracranial bleeds or masses. There is moderate cerebral volume loss for age, with resultant ventricular and sulcal prominence. There are extensive periventricular and deep white matter chronic small vessel ischemic changes. There is intracranial internal carotid artery atherosclerosis. Skull and face: Calvarium and visualized facial bones appear intact, without suspicious lesions. Sinuses: Visualized sinuses and mastoids are clear. IMPRESSION: 1. CT head without acute intracranial abnormalities or acute calvarial fractures. 2. Age-related senescent changes and sequela of chronic small vessel ischemic disease. Dictated by: Mikey Luciano M.D. on 07/19/2024 at 17:48 Approved by: Mikey Luciano M.D. on 07/19/2024 at 17:49
[2024-07-19 17:31] LABS: Add Manual Diff / Slide Review NO; Basophils Absolute Auto 100 /uL (0-100); Basophils Percent Auto 1.3 % (0-2); Eosinophils Absolute Auto 300 /uL (0-450); Eosinophils Percent Auto 5.4 % (2-4); Hematocrit 40.7 % (41-53); Hemoglobin 13.7 g/dL (13.5-17.5); Lymphocytes Absolute Auto 1400 /uL (1100-4500); Lymphocytes Percent Auto 25.8 % (25-40); Mean Corpuscular HGB Conc 33.7 % (30-36); Mean Corpuscular Hemoglobin 30.2 PG (26-34); Mean Corpuscular Volume 89.6 fL (80-100); Monocytes Absolute Auto 600 /uL (0-900); Monocytes Percent Auto 10.6 % (3-14); Neutrophils Absolute Auto 3200 /uL (1500-7000); Neutrophils Percent Auto 56.9 % (50-75); Platelet Count 241 X10^3/uL (150-400); Red Blood Cell Count 4.54 X10^6/uL (4.5-5.9); Red Cell Distribution Width 13.8 % (11.6-14.8); White Blood Cell Count 5.5 X10^3/uL (4.5-11.0)
[2024-07-19 17:34] LABS: Prothrombin Time 11.2 SECONDS (9.4-12.5)
[2024-07-19 17:37] LABS: PTT Partial Thromboplastin Tim 33 SECONDS (25.1-36.5)
[2024-07-19 17:38] LABS: Alanine Aminotransferase 26 IU/L (<50); Albumin 4.1 g/dL (3.5-5.0); Albumin Globulin Ratio 1.9 (1.0-2.8); Alkaline Phosphatase 77 U/L (38-126); Aspartate Aminotransferase 24 IU/L (17-59); BUN Creatinine Ratio 25.3 (6-22); Bilirubin Total 0.3 mg/dL (0.2-1.3); Blood Urea Nitrogen 22 mg/dL (9-20); Calcium 8.9 mg/dL (8.4-10.2); Carbon Dioxide 25 mmol/L (22-32); Chloride 107 mmol/L (98-107); Creatine Kinase 92 U/L (55-170); Estimated Glomerular Filt Rate > 60 mL/min (>60); Globulin 2.2 g/dL (1.7-4.1); Glucose 109 mg/dL (80-110); HEMOLYSIS < 15 (0-50); Magnesium 2.1 mg/dL (1.6-2.3); Sodium 140 mmol/L (137-145); Total Protein 6.3 g/dL (6.3-8.2)
[2024-07-19 17:50] LABS: Troponin I < 0.012 ng/mL (0.01-0.034)
[2024-07-19 18:00] LABS: UR Morphine/Opiate cutoff 300 Negative (Negative); Ur Creatinine Normal (Normal); Ur Specific Gravity Normal (Normal); Urine Amphetamines Negative (Negative); Urine Barbiturates Negative (Negative); Urine Benzodiazepines Negative (Negative); Urine Cocaine Negative (Negative); Urine MDMA Negative (Negative); Urine Methadone Negative (Negative); Urine Methamphetamines Negative (Negative); Urine Oxycodone Negative (Negative); Urine Phencyclidine Negative (Negative); Urine Tetrahydrocannabinol Negative (Negative); Urine Tricyclic Antidepressant Negative (Negative); Urine pH Normal (Normal)
--- NOTE | 2024-07-19 18:02 | DI.CT.S_ITS ---
PROCEDURE: CT ANGIO HEAD AND NECK INDICATIONS: confusion, stroke eval TECHNIQUE: After the administration of intravenous contrast, 1 mm thick sections acquired from the aortic arch through the [place]. 3-dimensional [id number] (MIP) and/or volume rendering reformats were acquired of the central intracranial vasculature and neck separately. For radiation dose reduction, the following was used: automated exposure control, adjustment of mA and/or kV according to patient size. COMPARISON: None. FINDINGS: Image quality: Diagnostic. BRAIN: CSF spaces: Ventricles are normal in size and shape. Basal cisterns are patent. No extra-axial fluid collections. Brain: No midline shift. No intracranial masses. No suspicious enhancement. Elliott-white matter interface appears intact. Skull and face: Calvarium and facial bones appear intact, without suspicious lesions. Orbits appear normal. Sinuses: Scattered ethmoid and bilateral maxillary sinus mucosal thickening. Mastoid air cells are clear. HEAD CT ANGIOGRAPHY: Anterior circulation: There are atherosclerotic calcifications of the intracranial segments of the internal carotid arteries. Intracranial internal carotid arteries appear patent without high-grade stenosis. There is flow/opacification within the paired anterior cerebral arteries. There is opacification within the middle cerebral arteries. The anterior communicating artery is seen. No aneurysms are seen. No occlusion. Posterior circulation: Visualized portions of the vertebral arteries are patent and join to form a normal appearing basilar artery. No evidence for high-grade stenosis. No occlusions. There is opacification of the posterior cerebral arteries. No aneurysms are seen. NECK CT ANGIOGRAPHY: Carotid system: The great vessels demonstrate a conventional anatomy as they arise from the aortic arch. The origins of the common carotid arteries appear patent. The common carotid arteries appear patent throughout their visualized courses without high grade stenosis. The bifurcation regions are both patent without high grade stenosis. The internal carotid arteries demonstrate normal calibers and courses. Posterior circulation: The origins of the vertebral arteries both appear patent without hemodynamically significant stenosis. The more superior extracranial portions of both vertebral arteries also demonstrate normal courses and calibers. They join to form a normal appearing basilar artery. Soft tissues: Visualized neck soft tissues demonstrate no suspicious abnormalities. Bones: No suspicious bony lesions. Visualized cervical spine appears normally aligned. No acute compression fractures of the vertebral bodies. IMPRESSION: No significant intracranial arterial abnormality is seen. No significant abnormality is seen within the arteries of the neck. Any quantitative measurements of stenosis were performed using NASCET criteria. Dictated by: Mikey Luciano M.D. on 07/19/2024 at 20:13 Approved by: Mikey Luciano M.D. on 07/19/2024 at 20:22
[2024-07-19 18:05] LABS: Bacteria Urine Many (>30); RBC Urine None Seen (0-5/HPF); Urine Volume 10mL (spun); WBC Urine 10-30/HPF (0-5/HPF)
[2024-07-19 18:06] LABS: Culture Indicated Urine Specimen Cultured; Squamous Epithelial Cell Urine None Seen (0-5/HPF)
--- NOTE | 2024-07-19 18:19 | ED.NEUROSD ---
HPI - Neuro Symptoms/Deficit General Chief Complaint: Neuro Symptoms/Deficit Stated Complaint: stroke systems Time Seen by Provider: 07/19/24 17:27 Source: patient Mode of arrival: Ambulatory History of Present Illness HPI Narrative: 79-year-old male right-handed with suspected dementia over the last few years per historian at bedside, about 2 years ago had suspected TIA when he was driving around and did not know where he was going, [facility] the [facility], able to eat and drink, today was sitting next to a fell over treat member but facing the wrong way and was told that he was facing the wrong way, did not seem to be aware that he was face in the wrong direction as everyone else at the retreat. No falls injury. No fevers or chills. No focal weakness to face arm or leg. No focal numbness to face arm or leg. Also admits to blurred vision in the general left eye for the last few days, no injury recalled, no eye pain, no amaurosis like shade deficits, central and peripheral vision the about the same. No associated headache. On Anticoagulants: No Related Data Home Medications Medication Instructions Recorded Confirmed levothyroxine 25 mcg capsule 25 mcg PO DAILY 01/07/21 07/19/24 Previous Rx's Medication Instructions Recorded cefdinir 300 mg capsule 300 mg PO BID 7 days #14 caps 07/19/24 Allergies Allergy/AdvReac Type Severity Reaction Status Date / Time venom-honey bee Allergy Unknown Verified 07/19/24 17:24 [BEE VENOM (HONEY BEE)] Review of Systems Hematologic/Lymphatic On Anticoagulants: No Patient History Medical History Rhinorrhea Insomnia Obstructive sleep apnea TIA (transient ischemic attack) Surgical History Status post hip replacement Family History Father Hypertension Heart disease Anxiety Dementia Mother Heart disease Dementia Social History Smoking Status: Former smoker Smokeless tobacco user: chewing tobacco alcohol intake: current substance use type: does not use Smoking Status: Former smoker alcohol intake frequency: 0-2 drinks per day Exam Narrative Exam Narrative: GENERAL: Well-developed patient, in mild distress. HEAD: Atraumatic. Normocephalic. EYES: Pupils equal round and reactive. Extraocular motions intact. No scleral icterus. No injection or drainage. Some blurred vision left eye with cover uncover, no diplopia, EOMI. Blurred vision it is not seem particularly worse in upper versus lower visual field, nor nasal versus temporal visual field. Also no difference central versus peripheral field on the left blurriness. No scotomata like symptoms, no amaurosis fugax like symptoms. ENT: Nose without bleeding, purulent drainage. Throat without erythema, tonsillar hypertrophy or exudate. Airway patent. NECK: Trachea midline. Non tender CARDIOVASCULAR: Regular rate and rhythm without murmurs, gallops, or rubs. RESPIRATORY: Clear to auscultation. Breath sounds equal bilaterally. No wheezes, rales, or rhonchi. GASTROINTESTINAL: Abdomen soft, non-tender, nondistended. EXTREMITIES: No edema or joint tenderness. BACK: Nontender without deformity or crepitance. No flank tenderness. NEURO: AOx3. Cranial nerves unremarkable except for possible left diffuse blurred vision that might be new and recent 2 days. Motor 5/5 bilateral upper extremities. Motor 5/5 bilateral lower extremities. [id number]-ih-[id number] testing unremarkable bilateral extremities. Light touch intact to face arm or leg. SKIN: No rash or erythema of visible areas Initial Vital Signs Initial Vital Signs: Vital Signs Pulse Rate 72 07/19/24 17:06 Blood Pressure 169/76 H 07/19/24 17:06 Pulse Oximetry 98 07/19/24 17:06 Course Orders Ordered: ED Orders 07/19/24 17:15 Complete Blood Count AUTO DIFF Stat Comprehensive Metabolic Panel Stat Magnesium Stat PTT Partial Thromboplastin Perez Stat Prothrombin Time INR Stat TSH [Thyroid Stimulating Hormone] Stat Troponin & CK Cardiac Panel Stat 07/19/24 17:18 CT head/brain wo con Stat XR chest 1V Stat EKG-12 Lead Stat 07/19/24 17:45 Urine Culture Stat Urine Drug Screen, Rapid Stat Urine Microscopic Stat 07/19/24 18:02 CT angio head and neck Stat 07/19/24 18:39 MR head/brain wo con Stat Discontinued Medications Ceftriaxone Sodium 1,000 mg/ (Sodium Chloride) 100 mls @ 200 mls/hr IV NOW ONE Stop: 07/19/24 18:22 Last Infusion: 07/19/24 19:55 Dose: Infused Documented By: Infusion: 07/19/24 19:33 Dose: 200 mls/hr Documented By: Infusion: 07/19/24 18:49 Dose: 0 mls/hr Documented By: Admin: 07/19/24 18:37 Dose: 200 mls/hr Documented By: MILKA Ondansetron HCl (Ondansetron 4 Mg/2 Ml Inj) 4 mg IV NOW PRN PRN Reason: Nausea And Vomiting Ondansetron HCl (Ondansetron 4 Mg Odt) 4 mg SL NOW PRN PRN Reason: Nausea And Vomiting Vital Signs Vital signs: Vital Signs - 8 hr 07/19/24 18:00 07/19/24 18:00 07/19/24 18:30 Temperature Pulse Rate 59 L 61 Respiratory Rate 16 12 Blood Pressure 145/77 H Pulse Oximetry 100 100 Oxygen Delivery Method 07/19/24 19:29 07/19/24 19:30 07/19/24 19:30 Temperature Pulse Rate 63 Respiratory Rate Blood Pressure 152/77 H Pulse Oximetry 96 100 Oxygen Delivery Method 07/19/24 20:00 07/19/24 20:30 07/19/24 20:57 Temperature 98.2 F Pulse Rate 61 64 60 Respiratory Rate 21 19 12 Blood Pressure 142/71 H Pulse Oximetry 100 99 100 Oxygen Delivery Method Room Air MDM - Neuro Symptoms/Deficit Lab Data Attestation: I reviewed the patient's lab results. Lab results narrative: White blood cell count 5500, hemoglobin 13.7, platelets adequate. BUN 22 with creatinine 0.87, glucose 109, remainder of basic metabolic panel also unremarkable. Liver functions and troponin negative. Urine with inflammatory cells and bacteria, urine culture sent by protocol. 07/19/24 17:15 07/19/24 17:15 Labs: Lab Results 07/19/24 07/19/24 Range/Units 17:15 17:45 WBC 5.5 (4.5-11.0) X10^3/uL RBC 4.54 (4.5-5.9) X10^6/uL Hgb 13.7 (13.5-17.5) g/dL Hct 40.7 L (41-53) % MCV 89.6 (80-100) fL MCH 30.2 (26-34) PG MCHC 33.7 (30-36) % RDW 13.8 (11.6-14.8) % Plt Count 241 (150-400) X10^3/uL Neut % (Auto) 56.9 (50-75) % Lymph % (Auto) 25.8 (25-40) % [place] % (Auto) 10.6 (3-14) % Eos % (Auto) 5.4 H (2-4) % Baso % (Auto) 1.3 (0-2) % Neut # (Auto) 3200 (1117-7452) /uL Lymph # (Auto) 1400 (4271-9685) /uL [place] # (Auto) 600 (0-900) /uL Eos # (Auto) 300 (0-450) /uL Baso # (Auto) 100 (0-100) /uL PT 11.2 (9.4-12.5) SECONDS INR 1.0 (0.9-1.3) APTT 33 (25.1-36.5) SECONDS Sodium 140 (137-145) mmol/L Potassium 4.0 (3.4-5.1) mmol/L Chloride 107 (98-107) mmol/L Carbon Dioxide 25 (22-32) mmol/L BUN 22 H (9-20) mg/dL Creatinine 0.87 (0.66-1.25) mg/dL Estimated GFR > 60 (>60) mL/min BUN/Creatinine Ratio 25.3 H (6-22) Glucose 109 (80-110) mg/dL Calcium 8.9 (8.4-10.2) mg/dL Magnesium 2.1 (1.6-2.3) mg/dL Total Bilirubin 0.3 (0.2-1.3) mg/dL AST 24 (17-59) IU/L ALT 26 (<50) IU/L Alkaline Phosphatase 77 (38-126) U/L Total Creatine Kinase 92 (55-170) U/L Troponin I < 0.012 (0.01-0.034) ng/mL Total Protein 6.3 (6.3-8.2) g/dL Albumin 4.1 (3.5-5.0) g/dL Globulin 2.2 (1.7-4.1) g/dL Albumin/Globulin Ratio 1.9 (1.0-2.8) TSH 1.09 (0.47-4.68) uIU/mL Urine RBC None seen (0-5/HPF) Urine WBC 10-30/hpf H (0-5/HPF) Ur Squamous Epith Cells None seen (0-5/HPF) Urine Bacteria Many (>30) H (None) Urine Yeast 1-5/hpf H (None) Ur Culture Indicated? Specimen cultured Vol Urine Centrifuged 10ml (spun) U Opiates 300ng/mL cut Negative (Negative) Ur Oxycodone Screen Negative (Negative) Urine Methadone Screen Negative (Negative) Ur Barbiturates Screen Negative (Negative) U Tricyclic Antidepress Negative (Negative) Ur Phencyclidine Scrn Negative (Negative) Ur Amphetamines Screen Negative (Negative) U Methamphetamines Scrn Negative (Negative) Ur MDMA Scrn (Ecstasy) Negative (Negative) U Benzodiazepines Scrn Negative (Negative) Urine Cocaine Screen Negative (Negative) U Marijuana (THC) Screen Negative (Negative) Urine pH Normal (Normal) Urine Specific [place] Normal (Normal) Ur Creatinine Normal (Normal) Urine Dip Bedside Urine Glucose Negative Bedside Urine Bilirubin - Negative Bedside Urine Ketone - Negative Urine Specific [place] 1.020 Bedside Urine Occult Blood - Negative Bedside Urine pH 6.0 Bedside Urine Protein - Negative Bedside Urine Urobilinogen - Negative Bedside Urine Nitrite - Negative Bedside Urine Leukocytes ++ 125 Esterase Imaging Data Chest x-ray: Radiologist's Impression: [address] [address] XRay Report Signed Patient: Rodney Saucedo MR#: [id number] : 1945 Acct:[id number] Age/Sex: 79 / M Date of Service: 07/19/24 Loc: ED Accession Number: [id number] Procedure: XR chest 1V Ordering Provider: Yasmin Hernandez MD PROCEDURE: XR CHEST 1V INDICATIONS: Possible stroke TECHNIQUE: One view of the chest was acquired. COMPARISON: [facility], , XR CHEST 2V, 07/20/2022, 16:14. FINDINGS: Surgical changes and devices: None. Lungs and pleura: Lungs are clear. No pleural effusions or pneumothorax. Mediastinum: Mediastinal contours appear normal. Heart size is normal. Bones and chest wall: No suspicious bony lesions. Overlying soft tissues appear unremarkable. IMPRESSION: Stable radiographic evaluation of the chest without acute cardiopulmonary abnormalities or focal consolidation. Dictated by: Mikey Luciano M.D. on 07/19/2024 at 17:55 Approved by: Mikey Luciano M.D. on 07/19/2024 at 17:55 CT scan - head: Radiologist's Impression: [place] [id number] CT Scan Report Signed Patient: Rodney Saucedo MR#: [id number] : 1945 Acct:[id number] Age/Sex: 79 / M Date of Service: 07/19/24 Loc: ED Accession Number: [id number] Procedure: CT head/brain wo con Ordering Provider: Yasmin Hernandez MD PROCEDURE: CT HEAD/BRAIN WO CON INDICATIONS: stroke symptoms TECHNIQUE: Noncontrast 4.5 mm thick angled axial sections acquired from the foramen magnum to the vertex, with coronal and sagittal reformats. For radiation dose reduction, the following was used: automated exposure control, adjustment of mA and/or kV according to patient size. COMPARISON: [facility], CT, CT HEAD/BRAIN WO CON, 11/25/2019, 13:05. FINDINGS: Image quality: Diagnostic. CSF spaces: Basal cisterns are patent. No extra-axial fluid collections. The ventricles are symmetric in size and shape. Brain: No intracranial bleeds or masses. There is moderate cerebral volume loss for age, with resultant ventricular and sulcal prominence. There are extensive periventricular and deep white matter chronic small vessel ischemic changes. There is intracranial internal carotid artery atherosclerosis. Skull and face: Calvarium and visualized facial bones appear intact, without suspicious lesions. Sinuses: Visualized sinuses and mastoids are clear. IMPRESSION: 1. CT head without acute intracranial abnormalities or acute calvarial fractures. 2. Age-related senescent changes and sequela of chronic small vessel ischemic disease. Dictated by: Mikey Luciano M.D. on 07/19/2024 at 17:48 Approved by: Mikey Luciano M.D. on 07/19/2024 at 17:49 MRI brain noncontrast: Radiologist's Impression: [address] [address] Magnetic Resonance Report Signed Patient: Rodney Saucedo MR#: [id number] : 1945 Acct:[id number] Age/Sex: 79 / M Date of Service: 07/19/24 Loc: ED Accession Number: [id number] Procedure: MR head/brain wo con Ordering Provider: Favio Beckwith MD PROCEDURE: MR HEAD/BRAIN WO CON INDICATIONS: confusion, change in behavior today, L blurred vision TECHNIQUE: Non-contrast axial T1 spin echo, axial T2 fast spin echo, sagittal and axial FLAIR, coronal T2 fast spin echo, axial gradient echo, axial diffusion and ADC through the brain. COMPARISON: [facility], CT, CT HEAD/BRAIN WO CON, 07/19/2024, 17:24. FINDINGS: Image quality: Excellent. CSF spaces: Ventricles appear symmetric in size and shape. Basal cisterns are patent. No extra-axial fluid collections. Brain: No acute intracranial bleeds or mass effects. There is cerebral volume loss for age. There are periventricular and deep white matter chronic small vessel ischemic changes. Brainstem appears normal. Diffusion-weighted images show no acute infarct. Encephalomalacia in the right frontal lobe secondary to prior ventriculostomy catheter placement (03/30). Foci of subarachnoid hemosiderin deposition along the occipital lobes and left frontal lobe, related to prior hemorrhage. Blooming artifact in the left occipital lobe, related to prior parenchymal hemorrhages. Normal intravascular flow voids are present. Skull and face: Calvarial bone marrow is normal in signal. Orbits are normal. Sinuses: Sinuses and mastoids are clear. IMPRESSION: 1. No acute stroke or intracranial mass effect. 2. Chronic microvascular ischemic changes and sequelae of prior subarachnoid/intraparenchymal hemorrhages. Dictated by: Julius Singh M.D. on 07/19/2024 at 19:57 Approved by: Julius Singh M.D. on 07/19/2024 at 20:03 CTA - brain/neck: Radiologist's Impression: [address] [address] [address] Scan Report Signed Patient: Rodney Saucedo MR#: [id number] : 1945 Acct:[id number] Age/Sex: 79 / M Date of Service: 07/19/24 Loc: ED Accession Number: [id number] Procedure: CT angio head and neck Ordering Provider: Favio Beckwith MD PROCEDURE: CT ANGIO HEAD AND NECK INDICATIONS: confusion, stroke eval TECHNIQUE: After the administration of intravenous contrast, 1 mm thick sections acquired from the aortic arch through the [place]. 3-dimensional oodftpm-uzepgylon-xvbvlsumbl (MIP) and/or volume rendering reformats were acquired of the central intracranial vasculature and neck separately. For radiation dose reduction, the following was used: automated exposure control, adjustment of mA and/or kV according to patient size. COMPARISON: None. FINDINGS: Image quality: Diagnostic. BRAIN: CSF spaces: Ventricles are normal in size and shape. Basal cisterns are patent. No extra-axial fluid collections. Brain: No midline shift. No intracranial masses. No suspicious enhancement. Elliott-white matter interface appears intact. Skull and face: Calvarium and facial bones appear intact, without suspicious lesions. Orbits appear normal. Sinuses: Scattered ethmoid and bilateral maxillary sinus mucosal thickening. Mastoid air cells are clear. HEAD CT ANGIOGRAPHY: Anterior circulation: There are atherosclerotic calcifications of the intracranial segments of the internal carotid arteries. Intracranial internal carotid arteries appear patent without high-grade stenosis. There is flow/opacification within the paired anterior cerebral arteries. There is opacification within the middle cerebral arteries. The anterior communicating artery is seen. No aneurysms are seen. No occlusion. Posterior circulation: Visualized portions of the vertebral arteries are patent and join to form a normal appearing basilar artery. No evidence for high-grade stenosis. No occlusions. There is opacification of the posterior cerebral arteries. No aneurysms are seen. NECK CT ANGIOGRAPHY: Carotid system: The great vessels demonstrate a conventional anatomy as they arise from the aortic arch. The origins of the common carotid arteries appear patent. The common carotid arteries appear patent throughout their visualized courses without high grade stenosis. The bifurcation regions are both patent without high grade stenosis. The internal carotid arteries demonstrate normal calibers and courses. Posterior circulation: The origins of the vertebral arteries both appear patent without hemodynamically significant stenosis. The more superior extracranial portions of both vertebral arteries also demonstrate normal courses and calibers. They join to form a normal appearing basilar artery. Soft tissues: Visualized neck soft tissues demonstrate no suspicious abnormalities. Bones: No suspicious bony lesions. Visualized cervical spine appears normally aligned. No acute compression fractures of the vertebral bodies. IMPRESSION: No significant intracranial arterial abnormality is seen. No significant abnormality is seen within the arteries of the neck. Any quantitative measurements of stenosis were performed using NASCET criteria. Dictated by: Mikey Luciano M.D. on 07/19/2024 at 20:13 Approved by: Mikey Luciano M.D. on 07/19/2024 at 20:22 ECG Data Attestation: I personally reviewed and interpreted this ECG as follows: Interpretation: Sinus bradycardia with first-degree AV block. DC 242. No obvious ST segment elevation or depression changes. QRS 98, QTC 385. MDM Narrative Medical decision making narrative: 79-year-old male with history of suspected dementia, right-handed, confusion episode noted where he was sitting in the wrong direction at a silent retreat unbeknownst to him when it was pointed out, was unaware of his malposition compared to everyone else. Confusion event, patient and concerned about possible stroke/TIA. No focal weakness symptoms. Cognitively seems that his recent baseline per at bedside. Also recent left eye blurred vision without associated headache. Unremarkable neurological exam, save for possible diffuse blurred vision left eye. CT head screening study negative, GFR favorable. CTA head and neck vessels ordered. CT noncontrast, no acute changes. See radiology report. Chest x-ray no acute changes, see radiology report CT angiogram head and neck vessels, no acute changes, no thrombosis, no significant narrowing. See radiology report. fish and wildlife technician available now, can do study, no obvious contraindications. MRI brain without contrast ordered. MRI brain noncontrast, no acute changes, no stroke changes. See radiology report. Urinalysis suspicious for infection, IV ceftriaxone. We will give further antibiotics to their pharmacy. Consider recheck of symptoms next few days to review symptoms, and also urine culture results. Consider repeat urinalysis after course of treatment completed. Further workup as an outpatient for now, they will follow up with your regular provider . Left eye blurriness for the last few days, no evidence for stroke, consider dedicated ophthalmology evaluation, in follow up, local ophthalmology office information provided if they did not have their own I provider. Consider taking aspirin daily for now, pending further workup for acute confusion event. Might be UTI related. Discharged home with , further follow up as an outpatient for now. Return precautions discussed. Critical Care Time Critical Care Time Total Critical Care Time: 31 Attestation: The high probability of a clinically significant, sudden or life threatening deterioration of the [cerebral vascular, neurologic, genitourinary] system(s) required my full and direct attention, intervention and personal management. The aggregate critical care time was [31] minutes. This time is in addition to time spent performing reported procedures but includes the following: [x] Data Review and interpretation [x] Patient assessment and monitoring of vital signs [x] Documentation [x] Medication orders and management Discharge Plan Departure Patient Disposition: Home Clinical Impression: Confusion, Urinary tract infection, Blurred vision, left eye Activity Restrictions/Additional Instructions: Mr Saucedo. You have reported history of suspected dementia per your , confusion event in the past, currently add silent retreat where you were sitting in the wrong direction then other members of the retreat, when this was pointed out. No focal neurological findings on detailed examination. Laboratory studies serum studies unremarkable. Thyroid replacement hormone noted on your medication list, thyroid stimulating hormone level was sent and was normal today. Urinalysis suspicious for possible infection, urine culture requested, IV antibiotics started, oral antibiotics to be taken for clearance of urinary tract infection. It is possible urinary tract infection might be accounting for recent confusion, though there could be longitudinal change in dementia. We did not do some advanced brain imaging tonight. CT head noncontrast study showed no acute changes. CT angiogram of the head and in the neck vessels did not show any thrombosis or clots or narrowing that requires any interventions. You were also able to have MRI brain noncontrast imaging, no stroke changes were confirmed. You had recent left eye blurred vision, we could not find stroke changes to account for this, consider dedicated ophthalmology I evaluation in follow up, who can do a detailed dilated exam of your retina and other structures, to see if there is a different exploration for left eye blurred vision. Consider taking aspirin daily for now, pending further workup as an outpatient. Take antibiotics as directed for clearance of your urinary tract infection. Consider recheck with your regular doctor in the next few days to recheck the results of your urine culture, and also to see how your symptoms are doing. Return earlier to this/nearest emergency department for any change worsening symptoms or any concerns prior. Thank you for allowing our team to evaluate you today. Prescriptions: New cefdinir 300 mg capsule 300 mg PO BID 7 Days Qty: 14 0RF No Action levothyroxine 25 mcg capsule 25 mcg PO DAILY Referrals: Tameka Peters MD [Physician] - Micheal Sanchez MD [Physician] - Roscoe Alonso MD [Primary Care Provider] - Stand Alone Forms: Patient Portal/API/Survey
[2024-07-19] MEDS: cefTRIAXone 1,000 MG in SODIUM CHLORIDE 0.9% 100 ML 200 MG IV (18:37)
--- NOTE | 2024-07-19 18:39 | DI.MRI.S_ITS ---
PROCEDURE: MR HEAD/BRAIN WO CON INDICATIONS: confusion, change in behavior today, L blurred vision TECHNIQUE: Non-contrast axial T1 spin echo, axial T2 fast spin echo, sagittal and axial FLAIR, coronal T2 fast spin echo, axial gradient echo, axial diffusion and ADC through the brain. COMPARISON: [facility], CT, CT HEAD/BRAIN WO CON, 07/19/2024, 17:24. FINDINGS: Image quality: Excellent. CSF spaces: Ventricles appear symmetric in size and shape. Basal cisterns are patent. No extra-axial fluid collections. Brain: No acute intracranial bleeds or mass effects. There is cerebral volume loss for age. There are periventricular and deep white matter chronic small vessel ischemic changes. Brainstem appears normal. Diffusion-weighted images show no acute infarct. Encephalomalacia in the right frontal lobe secondary to prior ventriculostomy catheter placement (03/30). Foci of subarachnoid hemosiderin deposition along the occipital lobes and left frontal lobe, related to prior hemorrhage. Blooming artifact in the left occipital lobe, related to prior parenchymal hemorrhages. Normal intravascular flow voids are present. Skull and face: Calvarial bone marrow is normal in signal. Orbits are normal. Sinuses: Sinuses and mastoids are clear. IMPRESSION: 1. No acute stroke or intracranial mass effect. 2. Chronic microvascular ischemic changes and sequelae of prior subarachnoid/intraparenchymal hemorrhages. Dictated by: Julius Singh M.D. on 07/19/2024 at 19:57 Approved by: Julius Singh M.D. on 07/19/2024 at 20:03
[2024-07-19 19:32] LABS: Thyroid Stimulating Hormone 1.09 uIU/mL (0.47-4.68)
== END 2024-07-19 20:59 | disposition home or self-care (01) ==
PROVIDERS: Emergency Medicine; Emergency Provider Emergency Medicine; Family Provider Family Medicine; PCP Family Medicine
DX: R41.0 Disorientation, unspecified (principal); N39.0 Urinary tract infection, site not specified; H53.8 Other visual disturbances; R20.0 Anesthesia of skin; Z86.73 Personal history of transient ischemic attack (TIA), and cerebral infarction without residual deficits; R29.702 NIHSS score 2
CPT/HCPCS: 36415; 70450; 70496; 70498; 70551; 71045; 80053; 80305; 81003; 81015; 82550; 83735; 84443; 84484; 85025; 85610; 85730; 87086; 93005; 96365; 99284; 99291; J0696; Q9967